=== PATIENT | male | born 1985 | race Caucasian/White ===

== ENCOUNTER 2020-11-04 14:20 | Outpatient (CLI) | payer OTHER ==
--- NOTE | 2020-11-04 23:34 | XRAY Report ---
PROCEDURE: Knee 3 View RT INDICATIONS: RIGHT KNEE PAIN TECHNIQUE: 3 views of the right knee(s) were acquired. COMPARISON: None. FINDINGS: Bones: No fractures or dislocations. No suspicious bony lesions. Joint spaces are maintained. Soft tissues: Questionable joint effusion given the obliquity of the lateral view. No suspicious soft tissue calcifications. IMPRESSION: No acute osseous abnormality. Questionable joint effusion. Reviewed by: Jason Buitrago DO on 11/04/2020 10:33 PM SHANIQUE Approved by: Jason Buitrago DO on 11/04/2020 10:33 PM AKOH Station ID: [id number]
== END 2020-11-04 14:21 | disposition home or self-care (01) ==
LOC: DI.N 14:20
PROVIDERS: ATTEND Physician Assistant Medical
DX: M25.561 Pain in right knee (principal)